=== PATIENT | female | born 1955 | race Caucasian/White ===

== ENCOUNTER → 2023-02-28 09:30 | Outpatient (CLI) | payer MEDICARE, SELFPAY ==
--- NOTE | 2023-02-28 09:42 | US_ITS ---
FINAL REPORT CLINICAL HISTORY: AACUTE KIDNEY INJURY FINDINGS: RENAL ULTRASOUND Ultrasound images of the kidneys were obtained. Limited images of the liver parenchyma demonstrates normal echogenicity. The right kidney measures 9.3 cm in length. It is normal echogenicity. There is no hydronephrosis. There is a possible mid right renal stone. The left kidney measures 9.3 cm in length. It is normal echogenicity. There is no hydronephrosis. There is a questionable right adrenal mass measuring 3.6 cm. Spleen is normal at 8 cm. IMPRESSION: Possible mid right renal stone. If indicated, stone protocol CT may be helpful. Right adrenal mass. Reviewed, Interpreted and Dictated by Trent Haile III, MD Transcribed by Linda Irvin Authenticated and [facility]
--- NOTE | 2023-02-28 10:05 | CA_ITS ---
FINAL REPORT TECHNIQUE: Grayscale, color Doppler and duplex Doppler ultrasound of the kidneys, aorta and renal arteries was performed. Multiple velocities were measured. CLINICAL HISTORY: IAM,SMOKER,HTN FINDINGS: Aorta velocity: 95.4 cm/sec Right kidney: 10.1 cm. No evidence of hydronephrosis or mass. Right intrarenal RI: 0.77, borderline Right renal artery velocity: 201 cm/sec. Right RAR (Renal artery-Aortic Ratio): 2.1 consistent with less than 60% stenosis. Left Kidney: 10.6 cm. No evidence of hydronephrosis or mass. Left intrarenal RI: 0.85, borderline Left renal artery velocity: 184 cm/sec. Left RAR (Renal Artery-Aortic Ratio): 1.9 consistent with less than 60% stenosis. IMPRESSION: Elevated velocities in the renal arteries with less than 60% stenosis. CT angiogram or postcontrast MR angiogram would be more sensitive for evaluation of possible renal artery stenosis. Reviewed, Interpreted and Dictated by Trent Haile III, MD Transcribed by Linda Irvin Authenticated and [facility]
== END ==
PROVIDERS: PCP Family Medicine; Visit Provider Internal Medicine Nephrology
DX: N17.9 Acute kidney failure, unspecified (principal)
CPT/HCPCS: 76770; 93976

== ENCOUNTER → 2023-03-01 15:31 | Outpatient (CLI) | payer MEDICARE, SELFPAY ==
[2023-03-01 17:35] LABS: Free T4 (Free Thyroxine) 1.27 ng/dl (0.78-2.19)
[2023-03-01 17:49] LABS: Thyroid Stimulating Hormone < 0.02 uIU/mL (0.465-4.68)
== END ==
PROVIDERS: PCP Family Medicine; Visit Provider Nurse Practitioner
DX: E04.2 Nontoxic multinodular goiter (principal)
CPT/HCPCS: 36415; 84439; 84443

== ENCOUNTER → 2023-03-08 07:45 | Outpatient (CLI) | payer MEDICARE, SELFPAY ==
--- NOTE | 2023-03-08 07:52 | US_ITS ---
FINAL REPORT CLINICAL HISTORY: isthmus FNA Иван TILLMAN FINDINGS: Ultrasound guided thyroid biopsy. HISTORY: Thyroid Isthmus mass. PROCEDURE: Procedure was discussed with JADA Edwards . It was decided that dominant approximate 3 cm mass within the isthmus would be targeted for biopsy. After informed consent was obtained and a time-out was performed, the patient was prepped and draped in usual sterile fashion over the mid neck. Utilizing local anesthesia and sterile technique with a 25-gauge needle, access to lesion was obtained. A total of 4 passes were made. The patient received no conscious sedation. The patient tolerated procedure well and left the department in good condition. IMPRESSION: Status post ultrasound guided biopsy of thyroid without immediate complication. Films reviewed , interpreted and dictated by Dr. Hernandez. Transcribed by Иван Johnson PA-C. Reviewed, Interpreted and Dictated by Rosas Hernandez MD Transcribed by LAYNE Bonilla Authenticated and [facility]
--- NOTE | 2023-03-08 07:54 | US_ITS ---
FINAL REPORT TECHNIQUE: Limited sonographic images of the thyroid were obtained. CLINICAL HISTORY: RT THYROID NODULE COMPARISON: 12/20/2022 FINDINGS: Diagnostic thyroid ultrasound was performed. The isthmus measures 0.88 cm. The right lobe of the thyroid measures up to 6.2 cm in length. The left lobe of the thyroid measures up to 3.3 cm in with. Again identified are multiple nodules in both lobes of the thyroid. Most of these nodules are subcentimeter however there is a dominant nodule in the isthmus measuring 2.6 x 1.2 cm which was not clearly seen on the previous exam. This nodule is consistent with TI-RADS category 3 and was selected for biopsy. In the posterior left lobe of the thyroid is a 1.4 cm nodule consistent with TI-RADS category 4. According to size criteria, this can be followed. Other sub cm nodules are stable. IMPRESSION: Dominant nodule in the isthmus measures up to 2.6 cm, biopsy was performed. Nodule in the left lobe of the thyroid consistent with TI-RADS category 4. Follow-up in 1 year is recommended. Reviewed, Interpreted and Dictated by Rosas Hernandez MD Transcribed by Tere Apodaca Authenticated and [facility]
== END ==
PROVIDERS: PCP Family Medicine; Visit Provider Nurse Practitioner
DX: E04.2 Nontoxic multinodular goiter (principal)
CPT/HCPCS: 10005; 76536

== ENCOUNTER → 2023-03-29 11:44 | Outpatient (POV) | payer MEDICARE, SELFPAY | PROVIDERS: Visit Provider Specialist/Technologist | DX: Z00.00 Encounter for general adult medical examination without abnormal findings (principal) ==

== ENCOUNTER → 2023-07-06 14:57 | Outpatient (CLI) | payer MEDICARE, SELFPAY | PROVIDERS: PCP Family Medicine; Visit Provider Internal Medicine | DX: Z01.812 Encounter for preprocedural laboratory examination (principal) | CPT/HCPCS: 36415 ==

== ENCOUNTER 2023-07-18 07:36 | Day surgery (SDC) | payer MEDICARE, SELFPAY ==
[2023-07-18] VITALS (13 sets, daily range): BP systolic 139–182; BP diastolic 60–94; PULSE 67–81; RESP 17–20; TEMP 36.7; O2SAT 91–100; BMI 41.1
--- NOTE | 2023-07-18 07:08 | IR_ITS ---
APPROVED REPORT Patient Location: Outpatient Yard Hand: PRITESH Rueda RT (R) PROCEDURES Right heart catheterization Left heart catheterization Selective coronary angiogram Intravascular ultrasound to the right coronary artery Drug-eluting stent deployment to the proximal and mid dominant right coronary INDICATION Coronary artery disease, Angina pectoris, Abnormal Myoview, Pulmonary hypertension, Angiographic indeterminate coronary disease, Pulmonary wheezing and dyspnea or FFR to be an appropriate Informed consent was obtained prior to the procedure. COMPLICATIONS NONE Estimated Blood Loss: LESS THAN 10 ML TECHNIQUE One percent lidocaine used to anesthetize the right anterior aspect of the wrist. The right radial artery was accessed via the Seldinger technique. 1% lidocaine was used anesthetize right groin the right femoral vein was accessed via the center technique and a 7 Swiss sheath is placed in the right femoral vein. A Oxford-Niles catheter was used to perform right heart catheterization under fluoroscopic and hemodynamic guidance. Arterial saturations and venous saturations were obtained. A 6 Swiss sheath was placed in the right radial artery. 2.5 mg of Verapamil, 800 mcg of nitroglycerin, 1mg Lidocaine and 5000 U Heparin were given through the arterial sheath. The papa catheter was also used to perform selective coronary angiogram. At the end the diagnostic cardiac angiogram therapeutic Was administered given therapeutic ACT and the guide catheter was placed in the right coronary followed by Choice PT extra-support wire. Intravascular ultrasound probe was advanced due to the patient having significant wheezing on exam where FFR was felt to be an appropriate. Intravascular ultrasound revealed heavy atheromatous plaque with an MLA of 3.7 mm??? and a large 3.75 mm vessel. There was heavy plaque burden with a significantly reduced MLA therefore a 3.5 x 38 mm Rapelje frontier stent was deployed at 20 renata reducing the severe stenosis to 0%. MARCELLA-3 flow was present before and after the procedure. At the end the procedure the apparatus was removed the sheath was removed and hemostasis was achieved using TR banding patient was transferred to the postop holding in stable condition ANGIOGRAPHIC RESULTS The left main artery Has an ostial 20% stenosis and a long distal eccentric 30% stenosis The left anterior descending artery Has mild 20 to 30% proximal stenoses with mid vessel 40% stenosis. Distally there is additional 60 to 70% stenoses however the vessel is less than 2 mm in diameter at the stenotic site. A large first diagonal artery is proximally patent and then it branches into a 2.5 mm superior branch which has a mid vessel 80 to 90% stenosis. The vessel was 1.75 mm at the stenotic area. The inferior branch has proximal 40 and a mid vessel 60% stenosis with the inferior branch being 1.5 mm in diameter The circumflex artery Vestigial and normal The right coronary artery Large and dominant with moderate proximal atheromatous plaque with moderate to severe mid vessel plaque with angiographic ambiguity between 40 and 70% The SANTOS ventriculogram reveals Not performed The left ventricular end-diastolic pressure Not measured Right atrial pressure 18 mmHg Pulmonary artery pressure 60/32 mmHg Pulmonary occlusion pressure 27 mmHg Right atrial saturation 59% Pulmonary artery saturation 61% Aortic saturation 94% Hemoglobin 12.4 Cardiac output 4.2 L/min Cardiac index 2.1 IMPRESSION Coronary disease as described above Severe disease in the dominant right coronary with successful stenting reducing the stenosis to 0% with 1 drug-eluting stent Persistent moderate and severe disease in the large bifurcating first diagonal artery as described above which is be
[2023-07-18 08:22] LABS: Basophils # 0.1 K/mm3 (0-0.2); Basophils % 0.6 % (0.1-2.0); Eosinophils # 0.3 K/mm3 (0.0-0.4); Eosinophils % 2.9 % (0.1-12.0); Hematocrit 39.7 % (37.0-47.0); Hemoglobin 12.4 g/dL (12.2-16.2); Lymphocytes % 21.5 % (10-50); Mean Corpuscular HGB Conc 31.2 g/dL (31.8-35.4); Mean Corpuscular Hemoglobin 26.4 pg (27.0-31.2); Mean Corpuscular Volume 84.5 fl (81-99); Mean Platelet Volume 9.1 fl (7.4-10.4); Monocytes # 0.9 K/mm3 (0.1-1.0); Monocytes % 9.3 % (1.7-9.3); Neutrophils # 6.2 K/mm3 (1.8-7.8); Neutrophils % 65.8 % (37.0-80.0); Platelet Count 271 K/mm3 (142-424); Red Cell Distribution Width 14.6 % (11.5-17.5); White Blood Count 9.4 K/mm3 (4.8-10.8)
[2023-07-18 08:38] LABS: Anion Gap 12.4 mEq/L (5-15); Blood Urea Nitrogen 27 mg/dl (7-17); Calcium 9.3 mg/dl (8.4-10.2); Carbon Dioxide 30 mmol/L (22.0-30.0); Chloride 98 mmol/L (98-107); Creatinine Clearance Estimated 71 mL/min (50-200); Estimated Glomerular Filt Rate 45 ml/min (>60); GFR (African American) 54 ML/MIN (>60); Glucose 78 mg/dl (74-100); Potassium 4.4 mmoL/L (3.5-5.1); Sodium 136 mmol/L (136-145)
[2023-07-18 10:30] LABS: CATHL Activated Clotting Time > 400 SEC (74-125)
[2023-07-18 10:34] LABS: CATHL Arterial O2 SAT 59.2 % (90-100)
--- NOTE | 2023-07-18 14:01 | HMH.PHACL ---
PHA Survey Statistician Discharge Med Residential Construction Instructor: Brissa Lainez has received discharge medication counseling on the following medications: ASPIRIN 81 MG CHEWABLE DAILY EFFIENT 10 MG DAILY RAMIPRIL 2.5 MG DAILY NADOLOL 40 MG DAILY PRAVASTATIN 40 MG HS
== END 2023-07-18 13:50 | disposition home or self-care (01) ==
PROVIDERS: PCP Family Medicine; Visit Provider Internal Medicine
DX: R94.39 Abnormal result of other cardiovascular function study (principal); I27.20 Pulmonary hypertension, unspecified; I25.118 Atherosclerotic heart disease of native coronary artery with other forms of angina pectoris; E11.9 Type 2 diabetes mellitus without complications; Z79.4 Long term (current) use of insulin; F17.210 Nicotine dependence, cigarettes, uncomplicated; Z79.899 Other long term (current) drug therapy
CPT/HCPCS: 80048; 82810; 85025; 85347; 92928; 92978; 93456; 99152; 99153; C1725; C1769; C1876; C1894; C9600; J1644; Q9967

== ENCOUNTER → 2023-08-11 12:11 | Outpatient (CLI) | payer MEDICARE, SELFPAY ==
--- NOTE | 2023-08-11 12:11 | CT_ITS ---
FINAL REPORT TECHNIQUE: Axial CT images were obtained from the lung bases to the mid abdomen before and following IV contrast administration in multiple phases. Reformatted images were reconstructed from the axial dataset provided for interpretation.This study was performed with techniques to keep radiation doses as low as reasonably achievable (ALARA). Individualized dose reduction techniques using automated exposure control or adjustment of mA and/or kV according to the patient's size were employed. CLINICAL HISTORY: Renal artery stenosis, right adrenal mass FINDINGS: CTA ABDOMEN LOWER CHEST: The heart is normal in size. The lung bases are clear. ABDOMEN: Liver, gallbladder and bile ducts: The liver enhances homogeneously without suspicious focal hepatic lesion.. Unremarkable gallbladder. No biliary ductal dilatation. Adrenal glands: There is a 3.8 cm right and a 4.1 cm left low-attenuation adrenal mass. These are nonspecific appearance and may represent adenomas versus metastases. Kidneys, ureters: No suspicious renal stones. No nephrolithiasis. No hydronephrosis. There are bilateral renal masses that do not have the appearance of simple cysts. The largest of these is on the left and measures 17 mm. These may represent hyperdense cysts or renal neoplasms. Spleen: The spleen is normal in size. Pancreas: The pancreas is unremarkable. Gastrointestinal system and mesentery: There is no evidence of bowel obstruction. The appendix is visualized and unremarkable. There is no significant mesenteric inflammation. Lymph nodes: No pathologically enlarged abdominal lymph nodes are present. Vessels: The abdominal aorta is normal in caliber. There is a 30% stenosis at the origin of the celiac axis. The superior mesenteric artery is normal. The inferior mesenteric artery is patent. There is a less than 30% stenosis of the proximal right renal artery. No left renal artery stenosis is identified. Peritoneum: No free intraperitoneal fluid or pneumoperitoneum. Body wall: No body wall contusion. No significant body wall hernias. Bones: No acute fracture. IMPRESSION: Bilateral adrenal masses may represent adenomas versus metastases. These could be further evaluated with follow-up CT to evaluate for stability or PET/CT. Bilateral renal masses may represent hyperdense cyst or renal neoplasms. Follow-up renal mass protocol CT is recommended in 3 months. Less than 30% stenosis of the proximal right renal artery. No left renal artery stenosis. 30% stenosis at the origin of the celiac axis. Reviewed, Interpreted and Dictated by Trent Haile III, MD Transcribed by Linda Irvin Authenticated and [facility]
[2023-08-11 12:46] LABS: Blood Urea Nitrogen 23 mg/dl (7-17); Estimated Glomerular Filt Rate 41 ml/min (>60); GFR (African American) 49 ML/MIN (>60)
== END ==
PROVIDERS: PCP Family Medicine; Visit Provider Physician Assistant
DX: E27.8 Other specified disorders of adrenal gland (principal); I70.1 Atherosclerosis of renal artery; N18.9 Chronic kidney disease, unspecified; Z72.0 Tobacco use
CPT/HCPCS: 36415; 74175; 82565; 84520; Q9967

== ENCOUNTER 2023-08-17 13:37 | Outpatient (RCR) | payer MEDICARE, SELFPAY | END 2023-12-14 15:00 | disposition home or self-care (01) | LOC: PT 13:37 | PROVIDERS: Visit Provider Internal Medicine | DX: I25.10 Atherosclerotic heart disease of native coronary artery without angina pectoris (principal); Z95.5 Presence of coronary angioplasty implant and graft | CPT/HCPCS: 93798 ==

== ENCOUNTER → 2023-08-17 16:02 | Outpatient (CLI) | payer MEDICARE, SELFPAY ==
[2023-08-17 17:14] LABS: Alanine Aminotransferase 18 U/L (12-78); Albumin Level 4.2 g/dl (3.5-5.0); Alkaline Phosphatase 84 U/L (38-126); Anion Gap 11.8 mEq/L (5-15); Aspartate Amino Transferase 25 U/L (14-36); Bilirubin,Direct 0.2 mg/dl (0.0-0.4); Bilirubin,Total 0.2 mg/dl (0.2-1.3); Blood Urea Nitrogen 24 mg/dl (7-17); Calcium 9.6 mg/dl (8.4-10.2); Carbon Dioxide 27 mmol/L (22.0-30.0); Chloride 106 mmol/L (98-107); Chol/HDL Ratio 3.9 (1-3.5); Cholesterol 197 mg/dl (140-200); Estimated Glomerular Filt Rate 45 ml/min (>60); GFR (African American) 54 ML/MIN (>60); Glucose 88 mg/dl (74-100); HDL Cholesterol 51 mg/dl (40-60); Potassium 5.8 mmoL/L (3.5-5.1); Sodium 139 mmol/L (136-145); Total Protein,Serum 6.7 g/dl (6.3-8.2); Triglycerides 139 mg/dl (30-150); VLDL Cholesterol 28 mg/dL (0-40)
[2023-08-17 17:25] LABS: Direct LDL Cholesterol 110.46 mg/dL (100-129)
== END ==
PROVIDERS: PCP Family Medicine; Visit Provider Internal Medicine
DX: I11.0 Hypertensive heart disease with heart failure (principal); I25.10 Atherosclerotic heart disease of native coronary artery without angina pectoris; I27.20 Pulmonary hypertension, unspecified; I50.30 Unspecified diastolic (congestive) heart failure; I70.1 Atherosclerosis of renal artery; R06.00 Dyspnea, unspecified; D64.9 Anemia, unspecified; J44.9 Chronic obstructive pulmonary disease, unspecified; R94.31 Abnormal electrocardiogram [ECG] [EKG]; Z72.0 Tobacco use
CPT/HCPCS: 36415; 80048; 80061; 80076

== ENCOUNTER → 2023-08-26 15:29 | Outpatient (CLI) | payer MEDICARE, SELFPAY ==
[2023-08-26 17:05] LABS: Anion Gap 13.8 mEq/L (5-15); Blood Urea Nitrogen 22 mg/dl (7-17); Calcium 9.5 mg/dl (8.4-10.2); Carbon Dioxide 28 mmol/L (22.0-30.0); Chloride 105 mmol/L (98-107); Estimated Glomerular Filt Rate 45 ml/min (>60); GFR (African American) 54 ML/MIN (>60); Glucose 102 mg/dl (74-100); Potassium 5.8 mmoL/L (3.5-5.1); Sodium 141 mmol/L (136-145)
== END ==
PROVIDERS: PCP Family Medicine; Visit Provider Internal Medicine
DX: E11.69 Type 2 diabetes mellitus with other specified complication (principal); Z79.4 Long term (current) use of insulin
CPT/HCPCS: 80048

== ENCOUNTER → 2023-09-07 13:14 | Outpatient (CLI) | payer MEDICARE, SELFPAY ==
[2023-09-07 14:45] LABS: Anion Gap 18.3 mEq/L (5-15); Blood Urea Nitrogen 26 mg/dl (7-17); Calcium 9.9 mg/dl (8.4-10.2); Carbon Dioxide 25 mmol/L (22.0-30.0); Chloride 102 mmol/L (98-107); Estimated Glomerular Filt Rate 41 ml/min (>60); GFR (African American) 49 ML/MIN (>60); Glucose 140 mg/dl (74-100); Potassium 5.3 mmoL/L (3.5-5.1); Sodium 140 mmol/L (136-145)
== END ==
PROVIDERS: PCP Family Medicine; Visit Provider Nurse Practitioner Family
DX: E87.5 Hyperkalemia (principal)
CPT/HCPCS: 36415; 80048

== ENCOUNTER → 2023-09-12 14:32 | Outpatient (CLI) | payer MEDICARE, SELFPAY ==
--- NOTE | 2023-09-12 14:34 | CA_ITS ---
APPROVED REPORT EXAM: Comprehensive 2D, Doppler, and color-flow Echocardiogram Diffusion Operator: Marie Hernandez, RCS, RVS Ht: 5 ft 1 in Wt: 221lbs BSA: 1.97 BP: 154/50 mmHg Indications: Smoker, Murmur, CAD, PHTN, COPD, DM, RENAL MASSES 2D Dimensions IVSd 1.14 cm F: 0.6-1.0 LVEF (Visual) 64.80 % PWd 1.26 cm F: 0.6 - 1.0 LA Volume 72.30 mL LVDd 5.37 cm F: 3.9 - 5.3 LA Volume Index 36.70 mL/m2 (M/F) 16-34 LVDs 3.45 cm F: 2.2 - 3.5 Aortic Root 2.97 cm F: 2.7 - 3.3 Left Atrium 3.73 cm F: 2.7 - 3.8 LVOT 1.80 cm (M/F) 1.5-2.5 M-Mode Dimensions LA Diam 3.35 cm (1.9-4.0) Ao Diam 2.86 cm (2.0-3.7) TAPSE 2.06 (<1.7) LV Diastology E Decel Time 250.00 (160-240 msec) E/A Ratio 0.64 MED E' 3.30 (< 7 cm/sec) MED A' 7.30 cm/s E'/MED E' Ratio 26.48 (>14) LAT E' 3.80 (<10 cm/sec) LAT A' 8.60 cm/s E/LAT E' Ratio 23.00 (>14) Aortic Valve LVOT Max 93.00 (70-110 cm/s) LVOT VTI 19.95 cm AoV Peak Ernesto. 115.00 (50-130 cm/s) AI PHT 436.00 ms AO Peak GR. 5.30 mmHg AO Mean GR. 2.70 (<5 mmHg) AO VTI 23.88 (18-25 cm) JAZMINE (VTI) 2.13 (2.5-4.5 cm2) Mitral Valve MV A Velocity 137.00 (40-130 cm/s) E/A Ratio 0.64 MV Decel. Time 250.00 (160-240 ms) MV Mean Gr. 2.70 (<2mmHg) Tricuspid Valve TR P. Velocity 289.00 cm/s RAP Estimate 10.00 mmHg RVSP 43.30 mmHg Left Ventricle The left ventricle is normal size. The left ventricular systolic function is mildly reduced. There is increased LV wall thickness (IVSd 1.4 cm). There is mild global hypokinesis present. Grade 2 diastolic dysfunction is present. LVEF is 45-50%. Right Ventricle Right ventricle is mildly dilated. Right ventricle is mildly hypokinetic. Atria Left atrium is mildly dilated. Right atrium is mildly dilated. Aortic Valve The aortic valve is mildly thickened. There is no aortic valvular stenosis. No aortic regurgitation is present. Mitral Valve MOderate mitral annular calcification (MAC). The mitral valve leaflets are thickened. No evidence of mitral valve stenosis. Mean MV gradient 2 mmHg (HR 75 bpm). Mild mitral regurgitation. Tricuspid Valve The tricuspid valve leaflets are thin and pliable. Mild tricuspid regurgitation. RVSP is 35-40 mmHg. Pulmonic Valve The pulmonary valve is normal in structure. Trace pulmonic regurgitation. Great Vessels The aortic root is normal in size. The ascending aorta is normal in size. IVC is normal in size and collapses >50% with inspiration. Pericardium There is no pericardial effusion. Other Information Study Quality: Fair Conclusion Technically difficult study due to poor accoustic windows. Mild reduction in LV systolic function (LVEF 45-50%). Increased LV wall thickness (IVSd 1.4 cm). Grade 2 diastolic dysfunction. Mild RV dilation, mild RV dysfunction. Mild biatrial dilation. Mild MR, mild TR. Elevated RVSP 35-40 mmHg. Due to reduced LVEF, increased LV wall thickness, and biatrial dilation, further evaluation of infiltrative disease, namely amyloidosis, is recommended (blood tests, PYP nuclear scan, and cardiac MRI [amyloidosis protocol]). Electronically signed by : Sierra Acevedo MD 09/15/2023 20:19:53
== END ==
PROVIDERS: PCP Family Medicine; Visit Provider Internal Medicine
DX: D64.9 Anemia, unspecified (principal); E27.8 Other specified disorders of adrenal gland; I25.10 Atherosclerotic heart disease of native coronary artery without angina pectoris; I27.20 Pulmonary hypertension, unspecified; I50.30 Unspecified diastolic (congestive) heart failure; I70.1 Atherosclerosis of renal artery; J44.9 Chronic obstructive pulmonary disease, unspecified; N18.9 Chronic kidney disease, unspecified; R94.31 Abnormal electrocardiogram [ECG] [EKG]; R94.39 Abnormal result of other cardiovascular function study; R06.09 Other forms of dyspnea
CPT/HCPCS: 93306

== ENCOUNTER → 2023-09-20 15:34 | Outpatient (CLI) | payer MEDICARE, SELFPAY ==
[2023-09-20 17:03] LABS: Anion Gap 15.9 mEq/L (5-15); Blood Urea Nitrogen 22 mg/dl (7-17); Calcium 9.2 mg/dl (8.4-10.2); Carbon Dioxide 26 mmol/L (22.0-30.0); Chloride 101 mmol/L (98-107); Estimated Glomerular Filt Rate 41 ml/min (>60); GFR (African American) 49 ML/MIN (>60); Glucose 106 mg/dl (74-100); Potassium 4.9 mmoL/L (3.5-5.1); Sodium 138 mmol/L (136-145); Total Protein,Serum 6.6 g/dl (6.3-8.2)
[2023-09-22 15:17] LABS: Albumin 3.6 g/dL (2.9-4.4); Alpha-1-Globulin 0.3 g/dL (0.0-0.4); Alpha-2-Globulin 0.9 g/dL (0.4-1.0); Gamma Globulin 0.6 g/dL (0.4-1.8); Immunoglobulin A, Qn 118 mg/dL (87-352); Immunoglobulin G, Qn 614 mg/dL (586-1602); Immunoglobulin M, Qn 41 mg/dL (26-217); Protein, Total 6.4 g/dL (6.0-8.5)
[2023-09-22 21:35] LABS: Free Kappa Lt Chains 32.7; Free Lambda Lt Chains 21.1
== END ==
PROVIDERS: PCP Family Medicine; Visit Provider Physician Assistant
DX: E11.69 Type 2 diabetes mellitus with other specified complication (principal); I25.118 Atherosclerotic heart disease of native coronary artery with other forms of angina pectoris; I70.1 Atherosclerosis of renal artery; J44.9 Chronic obstructive pulmonary disease, unspecified; R06.09 Other forms of dyspnea; R94.31 Abnormal electrocardiogram [ECG] [EKG]; E27.8 Other specified disorders of adrenal gland; E85.9 Amyloidosis, unspecified; E87.5 Hyperkalemia; I27.20 Pulmonary hypertension, unspecified; N28.89 Other specified disorders of kidney and ureter; I42.8 Other cardiomyopathies; Z79.84 Long term (current) use of oral hypoglycemic drugs
CPT/HCPCS: 36415; 80048; 82784; 83883; 84155; 84165; 86334

== ENCOUNTER 2023-11-07 13:38 | Outpatient (CLI) | payer MEDICARE, SELFPAY ==
[2023-11-07 14:55] LABS: Free T4 (Free Thyroxine) 1.02 ng/dl (0.78-2.19)
[2023-11-09 13:11] LABS: Albumin, U 53.2 % (.); Alpha-1-Globulin, U 4.2 % (.); Alpha-2-Globulin, U 14.7 % (.); Beta Globulin, U 20.6 % (.); Gamma Globulin, U 7.3 % (.); M-Spike, % Not Observed % (Not Observed); Prot,24hr calculated 192 mg/24 hr (30-150); Protein,Total,Urine 7.4 mg/dL (Not Estab.)
[2023-11-22 10:42] LABS: PDF: SCANNED IMAGE
== END 2023-11-07 23:59 ==
LOC: LAB.DROPOF 13:40
PROVIDERS: Nurse Practitioner; PCP Family Medicine; Visit Provider Physician Assistant
DX: E11.9 Type 2 diabetes mellitus without complications (principal); E27.8 Other specified disorders of adrenal gland; E85.9 Amyloidosis, unspecified; E87.5 Hyperkalemia; I27.20 Pulmonary hypertension, unspecified; N28.89 Other specified disorders of kidney and ureter; R06.00 Dyspnea, unspecified; E04.2 Nontoxic multinodular goiter; Z79.4 Long term (current) use of insulin; I42.8 Other cardiomyopathies
CPT/HCPCS: 36415; 84156; 84166; 84439; 84443; 86335

== ENCOUNTER 2023-11-17 12:43 | Outpatient (CLI) | payer MEDICARE, SELFPAY ==
--- NOTE | 2023-11-17 12:44 | MR_ITS ---
APPROVED REPORT Tool Trouble Shooter: CLINICAL INDICATION Increased LV wall thickness, amyloidosis evaluation TECHNIQUE Image Acquisition: Cardiac magnetic resonance (CMR) was performed on Siemens Espree MRI 1.5T scanner. Software platform sequences were performed using the Siemens Metrigo MR B19 platform. A set of three-plane, low-resolution, large [id number] localizers were initially acquired. Then axial, coronal, sagittal TrueFISP, as well as axial HASTE images, were obtained. These were followed by gated TrueFISP breathold cinematic sequences obtained in the short axis with 8 mm slices and 2 mm gaps, 2-chamber (vertical long axis), 3-chamber, 4-chamber (horizontal long axis). A bolus of contrast was injected intravenously with first-pass sequences obtained in the short axis and four-chamber planes. After approximately 10 minutes, a TI air defense specialist sequence was performed to determine the optimal TI time. Using the optimized TI time, delayed contrast enhancement segmented inversion???recovery TurboFLASH sequences were obtained in the short axis, 2-chamber, 3-chamber, and 4-chamber projections. 2D-velocity phase mapping was performed. Functional parameters were calculated by offline analysis on an independent workstation ([employer] Platform, [email or web address]). Contrast: ProHance??? (Gadoteridol) FINDINGS MORPHOLOGY AND FUNCTION Left ventricle: The left ventricle cavity is small. The indexed left ventricular end-diastolic volume (LVEDVi) is 40 ml/m2 (reference range 57-105 ml/m2 in males, 56-96 ml/m2 in females). There is low-normal left ventricular systolic function. There is asymmetric increase in left ventricular wall thickness (maximum 14.5 mm noted in the mid septal LV wall). There are no regional wall motion abnormalities noted. LVEF is calculated at 50.5% (reference range 57-77%). Right ventricle: The right ventricle is normal in size. The indexed right ventricular end-diastolic volume (RVEDVi) is 48 ml/m2 (reference range 61-121 ml/m2 in males, 48-112 ml/m2 in females). There is moderate reduction in right ventricular systolic function. RVEF is calculated at 50.6% (reference range 52-72% in males, 51-71% in females). Atria: The left atrium is normal in size. The maximum indexed left atrial volume is 27 ml/m2 (reference range 26-52 ml/m2 in males, 27-53 ml/m2 in females). The right atrium is normal in size. The maximum indexed right atrial volume is 18 ml/m2 (reference range 18-90 ml/m2). Aorta: The diameter of the aortic annulus is normal, measuring 27 mm (coronal view reference range 21-30 mm in males, 19-27 mm in females). The diameter of the aortic sinus is normal, measuring 32 mm (coronal view reference range 25-42 mm in males, 24-36 mm in females). The diameter of the sinotubular junction is normal, measuring 28 mm (coronal view reference range 18-32 mm in males, 18-28 mm in females). The diameters of the ascending and descending thoracic aorta are normal. Main pulmonary artery: The main pulmonary artery diameter is normal. Pericardium: The pericardial thickness is normal. The pericardial thickness measures 2.1 cm (normal < 4.0 cm). There is no pericardial effusion. VALVES The posterior mitral valve leaflet appears to be restricted in motion (likely due to calcification). Mild mitral regurgitation is present. Mild tricuspid regurgitation is present. Systolic anterior motion of the mitral valve is not visualized. Ratio of pulmonary to systemic flow, Qp:Qs ratio = 1.18 (normal < or = 1.2), demonstrating no evidence of hemodynamically significant shunt. TISSUE CHARACTERIZATION Resting Perfusion: There is resting hypoperfusion noted in the distal inferior, lateral, inferolateral, and anterolateral LV lin. Myocardial Fibrosis and/or edema: Normal gadolinium kinetics are present. No evidence of late gadolinium enhancement is noted, consistent with absence of myocardial scarring, infarction, or necrosis. T2-weighted imaging demonstrates no evidence of myocardial edema or inflammation. OTHER No other significant findings are noted. However, this exam is focused on the cardiac structure and function. IMPRESSION Small LV cavity with low-normal LV systolic function. LVEDVi= 40 ml/m2 and LVEF= 50.5%. Asymmetric increase in LV wall thickness (maximum 14.5 mm in mid-septal LV wall). Normal RV size with low-normal RV systolic function. RVEDVi= 48 ml/m2 and RVEF= 50.6%. No atrial enlargement. Mild MR, mild TR. No CMR evidence of myocardial scarring, infarction, or necrosis. No evidence of myocardial edema or inflammation. Resting hypoperfusion noted in the distal inferior, lateral, inferolateral, and anterolateral LV lin. Ratio of pulmonary to systemic flow, Qp:Qs ratio = 1.18 (normal < or = 1.2), demonstrating no evidence of hemodynamically significant shunt. Overall, this CMR demonstrates low-normal biventricular systolic function. There is no CMR evidence of amyloidosis. Regional resting hypoperfusion is present on resting perfusion study, suggestive of underlying coronary disease. Further evaluation for ischemia is recommended, if clinically indicated. COMPARISON None CRITICAL RESULT None COMMUNICATION Per this written report The findings of this cardiac MR were reviewed, reported, and signed by Scotty Acevedo MD (Power Electronics Engineer). Conclusion Electronically signed by : Sierra Acevedo MD 11/21/2023 06:28:20
[2023-11-17 13:21] LABS: Blood Urea Nitrogen 23 mg/dl (7-17); Estimated Glomerular Filt Rate 41 ml/min (>60); GFR (African American) 49 ML/MIN (>60)
[2023-11-17] MEDS: SODIUM CHLORIDE 0.9% 10ML SYR (RAD ONLY) 10 ML IV (14:48)
[2023-11-17] MEDS: SODIUM CHLORIDE 0.9% 50ML BAG 25 ML IV (14:48)
[2023-11-17] MEDS: GADOTERIDOL INJ 17ML SYRINGE 22 ML IV (14:49)
== END 2023-11-17 23:59 ==
LOC: RAD 12:44
PROVIDERS: PCP Family Medicine; Visit Provider Physician Assistant
DX: E11.9 Type 2 diabetes mellitus without complications (principal); E27.8 Other specified disorders of adrenal gland; E85.9 Amyloidosis, unspecified; E87.5 Hyperkalemia; I27.20 Pulmonary hypertension, unspecified; N28.89 Other specified disorders of kidney and ureter; R06.00 Dyspnea, unspecified; I42.8 Other cardiomyopathies; Z79.4 Long term (current) use of insulin
CPT/HCPCS: 75561; 82565; 84520; A9576

== ENCOUNTER 2023-12-07 15:12 | Outpatient (CLI) | payer MEDICARE, SELFPAY ==
[2023-12-07 15:57] LABS: Chloride 101 mmol/L (98-107); Potassium 5.2 mmoL/L (3.5-5.1); Sodium 136 mmol/L (136-145)
[2023-12-07 16:00] LABS: Anion Gap 11.2 mEq/L (5-15); Blood Urea Nitrogen 22 mg/dl (7-17); Carbon Dioxide 29 mmol/L (22.0-30.0); Estimated Glomerular Filt Rate 41 ml/min (>60); GFR (African American) 49 ML/MIN (>60)
[2023-12-07 16:01] LABS: Calcium 9.2 mg/dl (8.4-10.2); Glucose 91 mg/dl (74-100)
== END 2023-12-07 23:59 ==
LOC: LAB 15:13
PROVIDERS: PCP Family Medicine; Visit Provider Internal Medicine
DX: E11.9 Type 2 diabetes mellitus without complications (principal); E27.8 Other specified disorders of adrenal gland; E87.5 Hyperkalemia; I27.20 Pulmonary hypertension, unspecified; N28.89 Other specified disorders of kidney and ureter; R06.09 Other forms of dyspnea; R26.81 Unsteadiness on feet; R94.31 Abnormal electrocardiogram [ECG] [EKG]; Z79.4 Long term (current) use of insulin; Z79.84 Long term (current) use of oral hypoglycemic drugs; Z79.85 Long-term (current) use of injectable non-insulin antidiabetic drugs
CPT/HCPCS: 36415; 80048

== ENCOUNTER 2024-01-09 14:42 | Outpatient (CLI) | payer MEDICARE, SELFPAY ==
--- NOTE | 2024-01-09 14:44 | CA_ITS ---
FINAL REPORT TECHNIQUE: Color Doppler, duplex Doppler and verduzco scale sonography of the bilateral neck vasculature was performed. Velocities were measured in the carotid arteries. Stenosis evaluation based on velocity criteria. CLINICAL HISTORY: Dizziness if looking up, VBI, post circ TIA, HTN, HLD, DM, smoker, Hx ME, 1 cardiac stent. COMPARISON: None FINDINGS: The peak systolic velocity of the right common carotid artery is 76 cm/sec and internal carotid artery 96 cm/sec. The diastolic velocity in the internal carotid artery is 29 cm/sec. The ICA/CCA ratio is 1.36. Visually, a small to moderate amount of plaque is seen, heterogeneous. These findings are consistent with less than 50% stenosis. The external carotid artery is patent. The right vertebral artery is patent with antegrade flow. The peak systolic velocity of the left common carotid artery is 87 cm/sec and internal carotid artery 75 cm/sec. The diastolic velocity in the internal carotid artery is 22 cm/sec. The ICA/CCA ratio is 1.45. Visually, small to moderate amount of plaque is seen, heterogeneous. These findings are consistent with less than 50% stenosis. The external carotid artery is patent. The left vertebral artery is patent with antegrade flow. IMPRESSION: No evidence of significant carotid stenosis. Bilateral patent vertebral arteries. If indicated, CTA or MRA could further evaluate. Reviewed, Interpreted and Dictated by Trent Haile III, MD Transcribed by Sabine Denton Authenticated and [facility]
== END 2024-01-09 23:59 ==
LOC: RT 14:42
PROVIDERS: Visit Provider Specialist
DX: R42 Dizziness and giddiness (principal)
CPT/HCPCS: 93880

== ENCOUNTER 2024-04-08 15:30 | Outpatient (POV) | payer MEDICARE, SELFPAY | END 2024-04-08 23:59 | disposition home or self-care (01) | LOC: SC 15:30 | PROVIDERS: Visit Provider Internal Medicine Nephrology | DX: Z00.00 Encounter for general adult medical examination without abnormal findings (principal) ==

== ENCOUNTER 2024-04-08 16:32 | Outpatient (CLI) | payer MEDICARE, SELFPAY ==
[2024-04-08 16:43] LABS: Microscopic, Urine URINE MICROSCOPIC (MICROSCOPIC)
[2024-04-08 17:27] LABS: Hematocrit 39.4 % (37.0-47.0); Hemoglobin 12.5 g/dL (12.2-16.2); Mean Corpuscular HGB Conc 31.8 g/dL (31.8-35.4); Mean Corpuscular Hemoglobin 28.5 pg (27.0-31.2); Mean Corpuscular Volume 89.7 fl (81-99); Platelet Count 250 K/mm3 (142-424); Red Blood Count 4.39 M/mm3 (4.20-5.40); Red Cell Distribution Width 16.4 % (11.5-17.5); White Blood Count 7.2 K/mm3 (4.8-10.8)
[2024-04-08 18:16] LABS: Albumin Level 4.1 g/dl (3.5-5.0); Anion Gap 12.8 mEq/L (5-15); Blood Urea Nitrogen 26 mg/dl (7-17); Calcium 9.5 mg/dl (8.4-10.2); Carbon Dioxide 27 mmol/L (22.0-30.0); Chloride 103 mmol/L (98-107); Estimated Glomerular Filt Rate 45 ml/min (>60); GFR (African American) 54 ML/MIN (>60); Glucose 102 mg/dl (74-100); Phosphorous 4.5 mg/dl (2.5-4.5); Potassium 4.8 mmoL/L (3.5-5.1); Sodium 138 mmol/L (136-145)
[2024-04-08 18:28] LABS: Intact Parathyroid Hormone 125.7 pg/mL (7.5-53.5)
[2024-04-08 18:29] LABS: Creatinine,Urine Random 14 mg/dL (Not Estab.)
[2024-04-08 18:32] LABS: 25-OH Vitamin D, Total 30.1 ng/mL (30-100)
[2024-04-08 18:34] LABS: Appearance,Urine CLEAR (Clear); Bilirubin,Urine Negative (Negative); Blood, Urine Negative (Negative); Color,Urine YELLOW (Yellow); Glucose,Urine (UA) 2+ (Negative); Ketones,Urine Negative (Negative); Leukocyte Esterase,Urine Negative (Negative); Nitrate,Urine Negative (Negative); Protein,Urine Negative (Negative); Specific Gravity, Urine <= 1.005 (1.005-1.030); Urobilinogen,Urine 0.2 EU/dl (0.2)
== END 2024-04-08 23:59 | disposition home or self-care (01) ==
LOC: LAB 16:33
PROVIDERS: PCP Family Medicine; Visit Provider Internal Medicine Nephrology
DX: N18.30 Chronic kidney disease, stage 3 unspecified (principal); E66.9 Obesity, unspecified; Z68.41 Body mass index [BMI] 40.0-44.9, adult
CPT/HCPCS: 36415; 80069; 81001; 82306; 82570; 83970; 84156; 85014; 85018; 85048; 85049

== ENCOUNTER 2024-04-16 14:24 | Outpatient (CLI) | payer MEDICARE, SELFPAY ==
--- NOTE | 2024-04-16 14:25 | CT_ITS ---
FINAL REPORT TECHNIQUE: Axial CT images of the chest were obtained without contrast. Low-dose protocol was utilized. This study was performed with techniques to keep radiation doses as low as reasonably achievable (ALARA). Individualized dose reduction techniques using automated exposure control or adjustment of mA and/or kV according to the patient's size were employed. CLINICAL HISTORY: lung cancer screening 1ppd x53 years COMPARISON: None FINDINGS: CT CHEST WITHOUT, LOW DOSE SCREENING CT Di Vol: 2.90 mGy DLP: 101.07 mGy*cm There is no axillary, mediastinal, or hilar adenopathy. The heart size is normal. There are severe coronary artery calcifications. There is no pleural or pericardial effusion. Mild emphysema and mild scarring is noted. The lung windows show a 3 mm lateral right upper lobe nodule on image 21 and a 3 mm lateral left lower lobe nodule on image 54. There are several other less than 5 mm nodules. Limited images of the upper abdomen demonstrate bilateral low-attenuation adrenal nodules consistent with adenomas. No follow-up imaging is recommended as incidental lesions are likely benign. IMPRESSION: Bilateral lung nodules as above. LR Category 2S: 12 month follow-up low-dose chest CT is recommended. Modifier S: Severe coronary artery calcifications. Reviewed, Interpreted and Dictated by Trent Haile III, MD Transcribed by Ángela Robertson Authenticated and . [facility]
[2024-04-16 16:45] VITALS: PULSE 62; PULSE 68
[2024-04-16] MEDS: ALBUTEROL 0.083% 2.5 MG/3 ML NEB IH (16:45)
== END 2024-04-16 23:59 | disposition home or self-care (01) ==
LOC: RAD 14:25
PROVIDERS: PCP Family Medicine; Visit Provider Internal Medicine Pulmonary Disease
DX: F17.210 Nicotine dependence, cigarettes, uncomplicated (principal); R06.09 Other forms of dyspnea
CPT/HCPCS: 71271; 94060; 94618; 94640; 94726; 94729; J7613

== ENCOUNTER 2024-04-22 14:16 | Outpatient (CLI) | payer MEDICARE, SELFPAY ==
[2024-04-22 15:30] LABS: Alanine Aminotransferase 24 U/L (12-78); Albumin/Globulin Ratio 1.7 (1.1-1.8); Alkaline Phosphatase 74 U/L (38-126); Anion Gap 13.9 mEq/L (5-15); Aspartate Amino Transferase 32 U/L (14-36); Bilirubin,Total 0.4 mg/dl (0.2-1.3); Blood Urea Nitrogen 16 mg/dl (7-17); Calcium 9.7 mg/dl (8.4-10.2); Carbon Dioxide 29 mmol/L (22.0-30.0); Chloride 101 mmol/L (98-107); Estimated Glomerular Filt Rate 49 ml/min (>60); GFR (African American) 60 ML/MIN (>60); Globulin 2.3 g/dL (1.3-3.2); Glucose 86 mg/dl (74-100); Potassium 4.9 mmoL/L (3.5-5.1); Sodium 139 mmol/L (136-145); Total Protein,Serum 6.3 g/dl (6.3-8.2)
[2024-04-26 11:25] LABS: D001-IgE D pteronyssinus <0.10 kU/L (Class 0); D002-IgE D farinae <0.10 kU/L (Class 0); E001-IgE Cat Dander <0.10 kU/L (Class 0); E005-IgE Dog Dander <0.10 kU/L (Class 0); E072-IgE Mouse Urine <0.10 kU/L (Class 0); G002-IgE Bermuda Grass <0.10 kU/L (Class 0); G006-IgE Timothy Grass <0.10 kU/L (Class 0); I006-IgE Cockroach, German <0.10 kU/L (Class 0); Immunoglobulin E, Total 4 IU/mL (6-495); M001-IgE Penicillium chrysogen <0.10 kU/L (Class 0); M002-IgE Cladosporium herbarum <0.10 kU/L (Class 0); M003-IgE Aspergillus fumigatus <0.10 kU/L (Class 0); M006-IgE Alternaria alternata <0.10 kU/L (Class 0); T001-IgE Maple/Box Elder <0.10 kU/L (Class 0); T003-IgE Common Silver Birch <0.10 kU/L (Class 0); T006-IgE Cedar, Mountain <0.10 kU/L (Class 0); T007-IgE Oak, White <0.10 kU/L (Class 0); T008-IgE Elm, American <0.10 kU/L (Class 0); T010-IgE Walnut <0.10 kU/L (Class 0); T011-IgE Maple Leaf Sycamore <0.10 kU/L (Class 0); T014-IgE Cottonwood <0.10 kU/L (Class 0); T015-IgE Ash, White <0.10 kU/L (Class 0); T022-IgE Pecan, Hickory <0.10 kU/L (Class 0); T070-IgE White Mulberry <0.10 kU/L (Class 0); W001-IgE Ragweed, Short <0.10 kU/L (Class 0); W011-IgE Thistle, Russian <0.10 kU/L (Class 0); W014-IgE Pigweed, Common <0.10 kU/L (Class 0); W018-IgE Sheep Sorrel <0.10 kU/L (Class 0)
== END 2024-04-22 23:59 | disposition home or self-care (01) ==
LOC: LAB 14:17
PROVIDERS: PCP Family Medicine; Visit Provider Internal Medicine Pulmonary Disease
DX: D64.9 Anemia, unspecified (principal); A31.0 Pulmonary mycobacterial infection; J45.909 Unspecified asthma, uncomplicated; Z72.0 Tobacco use
CPT/HCPCS: 36415; 80053; 82785; 86003

== ENCOUNTER 2024-04-30 13:34 | Outpatient (CLI) | payer MEDICARE, SELFPAY ==
--- NOTE | 2024-04-30 13:34 | US_ITS ---
FINAL REPORT CLINICAL HISTORY: lung nodules COMPARISON: 03/08/2023 FINDINGS: THYROID ULTRASOUND: The right lobe of the thyroid gland measures 6.3 x 2.4 x 4.3 cm in size. The previously described isoechoic mid right thyroid lobe anterior nodule is not well-seen on today's exam. There is a mixed cystic and solid nodule in the posterior right thyroid lobe, measuring 1.6 cm in size, a TI-RADS category 2 nodule. The left lobe of the thyroid gland measures 5.2 x 2.1 x 3 cm in size. Is a 3-year left lobe nodule measuring up to 1.4 cm in size, a TI-RADS category 3 nodule, which is stable. There are a few other small mostly cystic nodules noted in both lobes. There is a dominant mass in the isthmus of the thyroid with a spongiform appearance which on today's exam measures 3 x 1.5 x 2.8 cm in size, was previously 2.6 x 1.2 x 3 cm in size. IMPRESSION: Multinodular goiter. Largest nodule is in the isthmus, and is stable. Recommend 12-month follow-up thyroid ultrasound. Reviewed, Interpreted and Dictated by Bruno Babin MD Transcribed by Sabine Denton Authenticated and . [facility]
== END 2024-04-30 23:59 | disposition home or self-care (01) ==
LOC: RAD 13:34
PROVIDERS: PCP Family Medicine; Visit Provider Nurse Practitioner
DX: E04.2 Nontoxic multinodular goiter (principal)
CPT/HCPCS: 76536

== ENCOUNTER 2024-04-30 14:33 | Outpatient (POV) | payer MEDICARE, SELFPAY | END 2024-04-30 23:59 | disposition home or self-care (01) | LOC: SC 14:34 | PROVIDERS: Visit Provider Specialist/Technologist | DX: Z00.00 Encounter for general adult medical examination without abnormal findings (principal) ==

== ENCOUNTER 2024-05-21 07:44 | Outpatient (CLI) | payer MEDICARE, SELFPAY ==
--- NOTE | 2024-05-21 07:45 | NM_ITS ---
FINAL REPORT CLINICAL HISTORY: elevated PTH 8:05AM 21.6 MCI TC SESTAMIBI FINDINGS: 21.6 mCi Technetium 99-M Sestamibi was administered. Planar imaging was performed early and two-hour delayed of the neck and upper thorax. Early imaging shows physiologic uptake within the upper neck involving the salivary glands and lower neck involving the thyroid gland. The thyroid is noted to be enlarged. On delayed imaging there is no abnormal retained activity in the lower neck or mediastinum to localize parathyroid adenoma. IMPRESSION: No scintigraphic evidence of parathyroid adenoma. Reviewed, Interpreted and Dictated by Susan Panchal MD Transcribed by Ángela Robertson Authenticated and [facility]
[2024-05-21] MEDS: ISO TC99M (SESTAMIBI);1 DOSE VIAL IV (08:17)
[2024-05-21] MEDS: SODIUM CHLORIDE 0.9% 10ML SYR (RAD ONLY) 10 ML IV (08:17)
== END 2024-05-21 23:59 | disposition home or self-care (01) ==
LOC: RAD 07:45
PROVIDERS: PCP Family Medicine; Visit Provider Nurse Practitioner
DX: E04.2 Nontoxic multinodular goiter (principal)
CPT/HCPCS: 78071; A9500

== ENCOUNTER 2024-06-28 14:03 | Outpatient (CLI) | payer MEDICARE, SELFPAY ==
--- NOTE | 2024-06-28 14:38 | XR_ITS ---
FINAL REPORT CLINICAL HISTORY: Rt Wrist pain COMPARISON: None FINDINGS: RIGHT WRIST Three views demonstrate no acute fracture or dislocation. The visualized joint spaces are normally aligned. The soft tissues are unremarkable. IMPRESSION: No acute bony abnormality. Reviewed, Interpreted and Dictated by Rosas Hernandez MD Transcribed by Ángela Robertson Authenticated and [facility]
--- NOTE | 2024-06-28 14:44 | CT_ITS ---
FINAL REPORT CLINICAL HISTORY: DIAMOND RENAL MASSES COMPARISON: CTA 08/11/2023 FINDINGS: Precontrast images demonstrate a 1.9 cm relatively high attenuation partial exophytic structure arising from the lateral most left kidney. Other smaller relatively high attenuation foci are also noted. These demonstrate attenuation values measuring up to 63 Hounsfield units. On the postinfusion images, there is no appreciable enhancement of these foci. Findings are consistent with complex benign cysts. The lung bases are clear. The liver is normal in size and attenuation. The gallbladder is present. The spleen is unremarkable. There are large lobular masses in both adrenal glands which are stable compared to the prior study. These demonstrate negative Hounsfield units bilaterally and are consistent with adrenal adenomas. The pancreas is unremarkable. Dense vascular calcifications are noted in the iliac vessels. The urinary bladder is unremarkable. The appendix is normal. IMPRESSION: Complex benign cysts in the left kidney. Bilateral adrenal adenomas. Reviewed, Interpreted and Dictated by Rosas Hernandez MD Transcribed by Ángela Robertson Authenticated and [facility]
[2024-06-28 15:17] LABS: Blood Urea Nitrogen 19 mg/dl (7-17); Estimated Glomerular Filt Rate 55 ml/min (>60); GFR (African American) 67 ML/MIN (>60)
[2024-06-28] MEDS: SODIUM CHLORIDE 0.9% 10ML SYR (RAD ONLY) 10 ML IV (15:59)
[2024-06-28] MEDS: IOPAMIDOL-370 (76%);100ML BOTTLE 75 ML IV (15:59)
== END 2024-06-28 23:59 | disposition home or self-care (01) ==
PROVIDERS: PCP Family Medicine; Visit Provider Internal Medicine Nephrology
DX: M25.531 Pain in right wrist (principal); N28.89 Other specified disorders of kidney and ureter
CPT/HCPCS: 36415; 73110; 74178; 82565; 84520; Q9967